=== PATIENT | male | born 1935 | race Caucasian/White ===

== ENCOUNTER 2016-08-14 10:19 | Emergency (ER) | payer MEDICARE, OTHER ==
[~2016-08-14 10:19] MED LIST: AMBIEN5 M1 PO; AMLODIPINE BESYL5 MG PO; ASPIRIN 32325 MG/TAB PO; ATROVENT I0.2 MG/1 M IH; BROVANA15 MCG/2 M IH; CARVEDILOL6.25 MG PO; CLOPIDOGREL75 M1 PO; FLOMAX 0.40.4 MG/CAP; ISOSORBIDE MONO60 M1 PO; PULMICORT0.25 MG/2; SIMVASTATIN10 M1 PO
== END 2016-08-14 12:45 | disposition other institution (70) ==
LOC: ED 10:19
DX: J18.9 Pneumonia, unspecified organism (principal); J44.9 Chronic obstructive pulmonary disease, unspecified; E87.1 Hypo-osmolality and hyponatremia; E86.0 Dehydration

== ENCOUNTER 2016-08-14 12:32 | Inpatient (IN) | payer MEDICARE, OTHER ==
[2016-08-14 12:43] VITALS: BP 169/84
[2016-08-14 14:14] VITALS: BP 169/84
[2016-08-14 15:03] VITALS: BP 127/52
[2016-08-14 18:10] VITALS: BP 127/59
[2016-08-14 23:40] VITALS: BP 112/56
[2016-08-15] VITALS (7 sets, daily range): BP systolic 128–161; BP diastolic 67–84
[2016-08-16 03:07] VITALS: BP 144/79
[2016-08-16 06:34] VITALS: BP 131/65
[2016-08-16 06:35] VITALS: BP 131/63
[2016-08-16 09:28] VITALS: BP 129/68
== END 2016-08-16 09:50 | disposition short-term general hospital (02) | DRG 190 ==
LOC: MED/SURG 12:32
PROVIDERS: ADMIT Physician Assistant
DX: J44.0 Chronic obstructive pulmonary disease with (acute) lower respiratory infection (principal); J18.9 Pneumonia, unspecified organism; E87.1 Hypo-osmolality and hyponatremia; S32.019A Unspecified fracture of first lumbar vertebra, initial encounter for closed fracture; Z66 Do not resuscitate; J44.1 Chronic obstructive pulmonary disease with (acute) exacerbation; E86.0 Dehydration; R13.10 Dysphagia, unspecified; R35.0 Frequency of micturition; R21 Rash and other nonspecific skin eruption; I25.10 Atherosclerotic heart disease of native coronary artery without angina pectoris; I10 Essential (primary) hypertension; E78.5 Hyperlipidemia, unspecified; W19.XXXA Unspecified fall, initial encounter; Y92.009 Unspecified place in unspecified non-institutional (private) residence as the place of occurrence of the external cause; Z79.82 Long term (current) use of aspirin; Z79.02 Long term (current) use of antithrombotics/antiplatelets; Z87.891 Personal history of nicotine dependence
CPT/HCPCS: A4340; J1940; J1956; J2270; J2930; J7030